=== PATIENT | female | born 1985 | race Caucasian/White ===

== ENCOUNTER 2021-02-14 23:47 | Emergency (ER) | payer BC, OTHER ==
[~2021-02-14] VITALS: Ht 157 cm; Wt 77.2 kg
[2021-02-14 23:54] VITALS: BP 134/87
--- OUTSIDE RECORDS SUMMARY | 2021-02-14 23:55 | XMS REPORT ---
Author Author [facility] Address Unknown Phone Unavailable Care Team Providers Care Skip Miner Name Role Phone TESS FLOWERS Unavailable PROBLEMS Type Condition ICD9-CM Code [id number] Code Onset Dates Condition S tatus W/U Status Risk SNOMED Code Notes Problem Loss of taste R43.2 Active confirmed 618730 [id number] ALLERGIES Allergen (clinical drug ingredient) Drug/Non Drug Allergy do cumented on EMR Reaction Allergy Type Onset Date Status Rocephin anaphylaxis with or without facial swelling Anoop g Allergy Active ENCOUNTERS from 1985 to 2021-02-02 Encounter Location Date Provider Diagnosis [address] [phone] Aug, TESS FLOWERS IMMUNIZATIONS No Information SOCIAL HISTORY Sex Assigned At : Social History Observation Description Sex Assigned At Female PHQ2 Question Answer Notes In the last 2 weeks, how often have you had little interest or pleasure in doing things? Not at all In the last 2 weeks, how often have you been feeling down, depressed, or hopeless? Not at all Total PHQ2 Score 0 REASON FOR REFERRAL No Information VITAL SIGNS Height 62 in Aug, Weight 233 lbs Aug, Temperature 98.1 degrees Fahrenheit Aug, Heart Rate 64 bpm Aug, Respiratory Rate 16 bpm Aug, Blood pressure systolic 110 mmHg Aug, Blood pressure diastolic 76 mmHg Aug, MEDICATIONS Medication SIG (Take, Route, Frequency, Duration) Notes Start Da te End Date Status Ciprofloxacin HCl 250 MG 1 tablet Orally Twice a day for 3 day(s ) Nov, Active PROCEDURES No Information RESULTS No Results REASON FOR VISIT No Information MEDICAL (GENERAL) HISTORY Type Description Date Medical History depression Goals Section No Information Health Concerns No Information MEDICAL EQUIPMENT No Information MENTAL STATUS No Information FUNCTIONAL STATUS No Information ASSESSMENTS No Information PLAN OF TREATMENT Medication Medication Name Sig Start Date Stop Date Ciprofloxacin HCl 250 MG 1 tablet Orally Twice a day for 3 day(s ) Nov, Insurance Providers Payer Name Payer Address Payer Phone Insured Name Patient Relati onship to Insured Coverage Start Date Coverage End Date Subscriber Number [facility] ashleigh Mccullough [id number] [place] [address] Camila Rodrigues self 2019 [place] Missing insurance scan copy of card into pt doc Rosey Bustamante self [id number] [place] [address] [facility] [id number] Rosey Bustamante self [id number]
--- OUTSIDE RECORDS SUMMARY | 2021-02-14 23:55 | XMS REPORT ---
Author Author [facility] Address Unknown Phone Unavailable Care Team Providers Care First Assistant Manager Name Role Phone TESS FLOWERS Unavailable PROBLEMS Type Condition ICD9-CM Code [id number] Code Onset Dates Condition S tatus W/U Status Risk SNOMED Code Notes Problem Loss of taste R43.2 Active confirmed [id number] ALLERGIES Allergen (clinical drug ingredient) Drug/Non Drug Allergy do cumented on EMR Reaction Allergy Type Onset Date Status Rocephin anaphylaxis with or without facial swelling Anoop g Allergy Active ENCOUNTERS from 1985 to 2021-02-01 Encounter Location Date Provider Diagnosis [facility] [address] [facility] [id number] [place] [address] June, TESS FLOWERS IMMUNIZATIONS No Information SOCIAL HISTORY [...] REASON FOR REFERRAL No Information VITAL SIGNS No information MEDICATIONS Medication SIG (Take, Route, Frequency, Duration) [...] Start Date Coverage End Date Subscriber Number Group [facility] Missing insurance scan copy of card into pt doc Rosey Bustamante self [id number] [place] [address] [facility] [id number] Rosey Bustamante self [id number] [facility] [place] [id number] Camila Rodrigues 2019
--- NOTE | 2021-02-15 00:10 | ED Lower Extremity ---
General Chief Complaint: Lower Extremity Stated Complaint: LEFT KNEE INJURY Source: patient History of Present Illness Date Seen by Provider: Feb 14, 2021 Time Seen by Provider: 23:51 Initial Comments 35 yo female presents with complaint of feeling like her left knee is popped out of place. She has had problems with the left knee since 5-6 years ago when she injured it doing an insanity workout. She periodically has it feel like it pops out of place but she can usually flex and extend her knee and get it to relax and "go back in place". She was getting in her car tonight and was in a hurry to avoid being late to work. She thinks she twisted her knee getting in the car. She felt like her knee popped out of place. When she got to work she kept trying to work her knee and move her leg to try and get it to go back in place. She was having pain in the sides and behind her knee. She did take some aleve for the pain which helped some. She drove herself here to be seen. Work had her leave ea rly because of the pain and not being able to walk and get around well enough to do her job. She states she never had the knee evaluated before because she never had insurance. 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 Onset: this evening Severity: moderate Pain/Injury Location: left knee Method of Injury: twisted (As she was getting in her car) Modifying Factors: Improves With Movement (Usually flexing and extending her knee repeatedly gets her knee to "pop back in place" and that helps it), Improves With Pain Medication Allergies and Home Medications Allergies Coded Allergies: No Known Drug Allergies (Unverified , 02/15/21) Patient Home Medication List Home Medication List Reviewed: Yes Cyclobenzaprine HCl (Cyclobenzaprine HCl) 10 Mg Tablet, 10 MG PO Q8H PRN for SPASMS Prescribed by: STUART HUDSON on 02/15/21 0047 Review of Systems Constitutional: No chills, No fever EENTM: no symptoms reported Respiratory: no symptoms reported Cardiovascular: no symptoms reported Gastrointestinal: no symptoms reported Genitourinary: no symptoms reported Musculoskeletal: see HPI, joint pain (Left knee) Skin: No change in color Psychiatric/Neurological: Denies Numbness, Denies Paresthesia Past Jldnfwy-Cutxgl-Dpkaak Hx Patient Social History Tobacco Use?: Yes Tobacco type used: Cigarettes Use of E-Cig and/or Vaping dev: No Substance use?: No Alcohol Use?: No Past Medical History Surgeries: Yes Section Respiratory: No Cardiac: No Neurological: No Genitourinary: No Gastrointestinal: No Musculoskeletal: No Endocrine: No HEENT: No Psychosocial: No Physical Exam Vital Signs Vital Signs - First Documented 02/14/21 23:54 Temp 36.1 Pulse 92 Resp 12 B/P (MAP) 134/87 (103) Pulse Ox 100 O2 Delivery Room Air Capillary Refill : Height, Weight, BMI Height: '" Weight: lbs. oz. kg; BMI Method: General Appearance: WD/WN, no apparent distress Cardiovascular: normal peripheral pulses Knees: bilateral knee normal range of motion, bilateral knee no evidence of injury; left knee pain (Pain to palpation behind her knee), left knee soft tissue tenderness (Lateral and medial collateral ligaments are tender to palpation.) Neurologic/Tendon: normal sensation, normal motor functions, normal tendon functions Neurologic/Psychiatric: alert, oriented x 3, abnormal gait (Antalgic gait) Skin: normal color, warm/dry Progress/Results/Core Measures Results/Orders My Orders Orders - STUART HUDSON MD Knee 4 View Or > Left (02/15/21 00:02) Rx-Cyclobenzaprine Tablet (Rx-Flexeril T (02/15/21 00:45) Mehdi Bandage (02/15/21 00:40) Vital Signs/I&O 02/14/21 23:54 Temp 36.1 Pulse 92 Resp 12 B/P (MAP) 134/87 (103) Pulse Ox 100 O2 Delivery Room Air Progress Progress Note #1: Progress Note X-ray of the left knee to evaluate the bony structure and joint. Advised the patient that with this going on for 5 to 6 years and feeling like her knee goes out of place, she likely would need an MRI imaging more advanced than what I have available. For this she would need to follow-up through the clinic or orthopedics. Determined the findings of today's x-ray and plan disposition from there Progress Note #2: Progress Note On my review of the 4 view films of the left knee there is no acute fracture or dislocation. There is no joint effusion. Counseled patient on results and advised to use an Mehdi bandage for compression and support. Use muscle relaxer for the tense muscles. Continue with NSAIDs and ice alternating with heat if needed. Rest and follow-up with clinic. Diagnostic Imaging Diagonstic Imaging: Xray Plain Films/CT/US/NM/MRI: knee Comments On my review of the 4 view films of the left knee there is no acute fracture or dislocation. There is no joint effusion. Reviewed: Reviewed by Me Departure Impression Primary Impression: Sprain of unspecified site of left knee, initial encounter Disposition: HOME, SELF-CARE Condition: Stable Departure-Patient Inst. Decision time for Depature: 00:41 Referrals: JERED PANDYA,LOCAL PHYSICIAN (PCP) Primary Care Physician BRANT BONILLA MD [facility] Patient Instructions: Knee Sprain ED Add. Discharge Instructions: Use the mehdi bandage for compression and support. The muscle relaxer can help your tense muscles relax so your knee can relax and go back in place for you. Use Ibuprofen (Motrin or Advil) or Naproxen (Aleve) to help with pain and inflammation. You may alternate ice and heat to the knee or use whichever helps more. Follow up with clinic for continued concerns. To establish care with primary care provider at [facility] clinic call [phone] Dr. Bonilla has clinic in [place] and his nurse practitioner, Bradley Pandya, sees patients here in [place]. All discharge instructions reviewed with patient and/or family. Voiced understanding. Scripts Cyclobenzaprine HCl (Cyclobenzaprine HCl) 10 Mg Tablet 10 MG PO Q8H PRN for SPASMS for 5 Days, #15 TAB 0 Refills Prov: STUART HUDSON MD 02/15/21 Work/School Note: Work Release Form Date Seen in the Emergency Department: Feb 14, 2021 Return to Work: Feb 15, 2021 Restrictions: No Restrictions STUART HUDSON MD Feb 15, 2021 00:10
[2021-02-15] MEDS ORDERED: RX-CYCLOBENZAPRINE 10 MG (FLEXERIL) TAB PPK#3 PO PRN (00:45)
[2021-02-15] MEDS ORDERED: CYCL10TA25 PO (00:47)
--- NOTE | 2021-02-15 03:33 | Diagnostic Imaging Report ---
Indication: Left knee injury 4 views of the left knee show no fracture, dislocation or other acute abnormalities. IMPRESSION: Negative left knee Dictated by: Dictated on workstation # [id number]
== END 2021-02-15 00:50 | disposition home or self-care (01) ==
LOC: EDUNIT# 23:47 → ER FS 23:53
DX: S83.92XA Sprain of unspecified site of left knee, initial encounter (principal); F17.210 Nicotine dependence, cigarettes, uncomplicated; X50.1XXA Overexertion from prolonged static or awkward postures, initial encounter
CPT/HCPCS: 73564

== ENCOUNTER 2021-11-29 01:11 | Emergency (ER) | payer BC ==
[~2021-11-29 01:11] MED LIST: CYCL10TA25 PO
--- NOTE | 2021-11-29 01:23 | ED GI ---
General Chief Complaint: OB > 20 WEEKS Stated Complaint: W/ABD PAIN History of Present Illness Date Seen by Provider: Nov 29, 2021 Time Seen by Provider: 01:12 Initial Comments 35-year-old female presents with abdominal pains and cramping. Patient is 32 weeks and 2 days. Patient is due on January 29, 2022. Patient reports that she is having abdominal cramping that comes and goes feel somewhat like contractions. Patient reports that this been going on for about an hour. The pain is not constant. She reports that the pain is in the anterior abdomen and little bit on the right side. Patient sees Dr. Ovalles at [facility] for her OB care. She is not having any vaginal bleeding, fluid leaking, or discharge. She does report that she has some pressure in her lower pelvis. Allergies and Home Medications Allergies Coded Allergies: No Known Drug Allergies (Unverified , 02/15/21) Patient Home Medication List Home Medication List Reviewed: Yes Cyclobenzaprine HCl (Cyclobenzaprine HCl) 10 Mg Tablet, 10 MG PO Q8H PRN for SPASMS Prescribed by: STUART HUDSON on 02/15/21 0047 Review of Systems Review of Systems Constitutional: no symptoms reported EENTM: No Symptoms Reported Respiratory: No Symptoms Reported Cardiovascular: No Symptoms Reported Gastrointestinal: See HPI Genitourinary: See HPI Musculoskeletal: no symptoms reported Skin: no symptoms reported Psychiatric/Neurological: No Symptoms Reported Endocrine: No Symptoms Reported Hematologic/Lymphatic: No Symptoms Reported Past Mrjgoeh-Edwbwv-Xrieez Hx Patient Social History Tobacco Use?: Yes Tobacco type used: Cigarettes Smoking Status: Current Everyday Smoker Use of E-Cig and/or Vaping dev: No Substance use?: No Alcohol Use?: No Pt feels they are or have been: No Past Medical History Surgeries: Yes Section Respiratory: No Cardiac: No Neurological: No Genitourinary: No Gastrointestinal: No Musculoskeletal: No Endocrine: No HEENT: No Psychosocial: No Physical Exam Vital Signs Vital Signs - First Documented 11/29/21 01:11 Temp 36.4 Pulse 97 Resp 18 B/P (MAP) 136/79 (98) Pulse Ox 98 O2 Delivery Room Air Capillary Refill : Height/Weight/BMI Height: '" Weight: lbs. oz. kg; 31.00 BMI Method: General Appearance: WD/WN, no apparent distress Respiratory: lungs clear, normal breath sounds Cardiovascular: normal peripheral pulses, regular rate, rhythm Gastrointestinal: soft, other (Gravid appearing, heart tones 150s) Extremities: normal range of motion, non-tender Pelvic: other (Declined exam) Neurologic/Psychiatric: alert, normal mood/affect, oriented x 3 Skin: normal color, warm/dry Progress/Results/Core Measures Results/Orders Vital Signs/I&O 11/29/21 11/29/21 01:11 01:24 Temp 36.4 Pulse 97 97 Resp 18 18 B/P (MAP) 136/79 (98) 136/79 Pulse Ox 98 98 O2 Delivery Room Air Room Air Progress Progress Note : Progress Note Discussed with patient that if she is concerned about contractions we will need to transfer her for OB monitoring as we do not have the ability. Patient was offered a cervical exam but declined. Patient preferred to be discharged and she will just drive over to [place] and present to the OB floor for further evaluation. Patient understands risks with but feels that she would just rather go over on her own. She does report that she has an appointment at 9 AM this morning with Dr. Ovalles. Patient was discharged and recommended that she goes to the OB floor for monitoring upon discharge. Departure Impression Primary Impression: 32 weeks gestation of Disposition: HOME, SELF-CARE Condition: Unchanged Departure-Patient Inst. Referrals: NO,LOCAL PHYSICIAN (PCP) Primary Care Physician Patient Instructions: Stomach Pain Later in , - The Eighth Month Add. Discharge Instructions: Follow-up with Dr. Ovalles. If you develop contractions or concerns please present to either the OB floor at [place] or [place] All discharge instructions reviewed with patient and/or family. Voiced understanding. ARTIE ORELLANA DO Nov 29, 2021 01:23
[2021-11-29 01:24] VITALS: BP 136/79
== END 2021-11-29 01:24 | disposition home or self-care (01) ==
LOC: EDUNIT# 01:11 → ER FS 01:13
DX: Z34.93 Encounter for supervision of normal pregnancy, unspecified, third trimester (principal); Z3A.32 32 weeks gestation of pregnancy; Z28.310 Unvaccinated for COVID-19
CPT/HCPCS: 99281

== ENCOUNTER 2021-12-25 22:53 | Emergency (ER) | payer BC ==
[2021-12-25] MEDS ORDERED: IBUPROFEN 600 MG (MOTRIN) TAB PO ONE (23:15)
--- NOTE | 2021-12-25 23:24 | ED Cough/URI ---
General Chief Complaint: Cough/Cold/Flu Symptoms Stated Complaint: N/V/D,SORE THROAT,COUGH Nursing Triage Note: Pt presents with the complaint of a cough and sore throat that has been going on for a week. Pt is 37 weeks Source: patient Exam Limitations: no limitations History of Present Illness Date Seen by Provider: Dec 25, 2021 Time Seen by Provider: 22:55 Initial Comments Patient is a 36-year-old, 37-week who presents with sore throat, body aches, for nausea and vomiting diarrhea. Patient is taking NyQuil with limited relief. Denies abdominal pain or cramping or vaginal fluid leakage. No other symptoms or complaints. Timing/Duration: yesterday Severity/Quality: other Prior Episodes/Possible Cause: other Modifying Factors: Improves With Other Associated Symptoms: other Allergies and Home Medications Allergies Coded Allergies: ceftriaxone (Verified Allergy, Unknown, 12/25/21) Patient Home Medication List Home Medication List Reviewed: Yes Cyclobenzaprine HCl (Cyclobenzaprine HCl) 10 Mg Tablet, 10 MG PO Q8H PRN for SPASMS Prescribed by: STUART HUDSON on 02/15/21 0047 Guaifenesin (Mucinex) 1,200 Mg Tab.er.12h, 1,200 MG PO BID Prescribed by: PILO MCMILLAN on 12/25/218 Prednisone (Prednisone) 20 Mg Tab, 40 MG PO DAILY Prescribed by: PILO MCMILLAN on 12/25/218 Review of Systems Review of Systems Constitutional: see HPI EENTM: see HPI Respiratory: see HPI Cardiovascular: see HPI Gastrointestinal: see HPI Genitourinary: see HPI Musculoskeletal: see HPI Skin: see HPI Psychiatric/Neurological: See HPI Hematologic/Lymphatic: See HPI Immunological/Allergic: see HPI All Other Systems Reviewed Negative Unless Noted: No Past Haansyb-Njjtug-Xtivpl Hx Patient Social History Tobacco Use?: No Use of E-Cig and/or Vaping dev: No Substance use?: No Alcohol Use?: No Pt feels they are or have been: No Past Medical History Surgeries: Yes Section Respiratory: No Cardiac: No Neurological: No Genitourinary: No Gastrointestinal: No Musculoskeletal: No Endocrine: No HEENT: No Psychosocial: No Physical Exam Vital Signs - First Documented 12/25/21 22:57 Temp 36.5 Pulse 93 Resp 18 B/P (MAP) 135/75 (95) Pulse Ox 100 O2 Delivery Room Air Capillary Refill : Less Than 3 Seconds Height: '" Weight: lbs. oz. kg; 31.00 BMI Method: General Appearance: WD/WN, no apparent distress Eyes: Bilateral Eye Normal Inspection, Bilateral Eye PERRL, Bilateral Eye EOMI HEENT: PERRL/EOMI Neck: non-tender, full range of motion, supple Respiratory: lungs clear, normal breath sounds Cardiovascular: regular rate, rhythm Gastrointestinal: soft, other (Carotid) Neurologic/Psychiatric: alert, oriented x 3 Skin: normal color, warm/dry Focused Exam Sepsis Stage: Ruled Out Progress/Results/Core Measures Suspected Sepsis SIRS Temperature: Pulse: 93 Respiratory Rate: 18 Blood Pressure 135 /75 Mean: 95 Results/Orders Lab Results Laboratory Tests Test 12/25/21 23:07 Range/Units Influenza Type A (RT-PCR) Not Detected Not Detecte Influenza Type B (RT-PCR) Not Detected Not Detecte SARS-CoV-2 RNA (RT-PCR) Detected H Not Detecte My Orders Orders - PILO MCMILLAN 19 Inhouse Test (12/25/21 23:04) Influenza A And B By Pcr (12/25/21 23:04) Isolation Central Supply Req (12/25/21 23:04) Ibuprofen Tablet (Motrin Tablet) (12/25/21 23:15) Famotidine Tablet (Pepcid Tablet) (12/25/21 23:30) Prednisone Tablet (Deltasone Tablet) (12/25/21 23:30) Medications Given in ED Current Medications Medications Dose Ordered Sig/Lorin Route Start Time Stop Time Status Last Admin Dose Admin Famotidine 40 mg ONCE ONCE PO 12/25/21 23:30 12/25/21 23:31 DC 12/25/21 23:36 40 MG Ibuprofen 600 mg ONCE ONCE PO 12/25/21 23:15 12/25/21 23:16 DC 12/25/21 23:11 600 MG Prednisone 40 mg ONCE ONCE PO 12/25/21 23:30 12/25/21 23:31 DC 12/25/21 23:36 40 MG Vital Signs/I&O 12/25/21 22:57 Temp 36.5 Pulse 93 Resp 18 B/P (MAP) 135/75 (95) Pulse Ox 100 O2 Delivery Room Air Capillary Refill : Less Than 3 Seconds Blood Pressure Mean: 95 Departure Communication (Admissions) Patient with COVID without respiratory compromise. Steroids given. Patient with moderate symptoms with progression since onset and poor tolerance to conventional therapy. Will place on Paxlovid with steroids in OB follow-up. Return precautions reviewed. Patient verbalizes understanding agreement discharge instructions prior to departure Impression Primary Impression: COVID-19 Disposition: 01 HOME, SELF-CARE Condition: Stable Departure-Patient Inst. Decision time for Depature: 23:26 Referrals: FLORENTINO FOSTER DO (PCP/Family) Primary Care Physician Patient Instructions: COVID-19 and Add. Discharge Instructions: You were evaluated in the emergency department for sore throat, body aches and cough. COVID and influenza test were performed and are negative. Your symptoms are consistent with acute viral syndrome. Please go home and rest, increase fluids take Tylenol, Mucinex as needed for body aches and fever. Follow-up with your [facility] later this week for reevaluation. Return to the ED if new or worsening symptoms. All discharge instructions reviewed with patient and/or family. Voiced understanding. Scripts Famotidine (Pepcid) 20 Mg Tablet 20 MG PO BID, #10 TAB Prov: PILO MCMILLAN DO 12/25/21 Nirmatrelvir/Ritonavir (Paxlovid 300-100 mg Pack (Eua)) 300 Mg (150 Mg X 2)-100 Mg Tab.ds.pk 1 EACH PO BID, #10 PKG Prov: PILO MCMILLAN DO 12/25/21 Guaifenesin (Mucinex) 1,200 Mg Tab.er.12h 1200 MG PO BID, #30 TAB Prov: PILO MCMILLAN DO 12/25/21 Prednisone (Prednisone) 20 Mg Tab 40 MG PO DAILY, #4 TAB 0 Refills Prov: PILO MCMILLAN DO 12/25/21 PILO MCMILLAN DO Dec 25, 2021 23:24
[2021-12-25] MEDS ORDERED: GUAI120013 PO (23:28)
[2021-12-25] MEDS ORDERED: PRD20T PO (23:28)
[2021-12-25] MEDS ORDERED: predniSONE 20 MG TAB PO ONE (23:30)
[2021-12-25] MEDS ORDERED: FAMOTIDINE 20 MG (PEPCID) TABLET PO ONE (23:30)
[2021-12-25 23:57] VITALS: BP 135/75
[2021-12-25] MEDS ORDERED: FAMO-119 PO (23:58)
[2021-12-25] MEDS ORDERED: NIRM1TAB PO (23:58)
== END 2021-12-26 00:14 | disposition home or self-care (01) ==
LOC: EDUNIT# 22:53 → ER FS 22:54
DX: O98.513 Other viral diseases complicating pregnancy, third trimester (principal); U07.1 COVID-19; Z3A.37 37 weeks gestation of pregnancy; Z28.310 Unvaccinated for COVID-19
CPT/HCPCS: 87636

== ENCOUNTER 2022-01-27 19:10 | Emergency (ER) | payer BC ==
[~2022-01-27] VITALS: Ht 157.5 cm; Wt 104.3 kg
[~2022-01-27 19:10] MED LIST changes: +FAMO-119 PO; +GUAI120013 PO; +NIRM1TAB PO; +PRD20T PO
--- NOTE | 2022-01-27 19:42 | ED GI ---
General Stated Complaint: CONSTIPATION/FEET AND LEGS SWELLING Source of Information: Patient History of Present Illness Date Seen by Provider: Jan 27, 2022 Time Seen by Provider: 19:19 Initial Comments 36-year-old female presenting with complaints of constipation, left-sided abdominal pain, difficulty urinating. She feels like she has swelling in her arms and legs. She delivered a baby by on Saturday and had a bowel movement before leaving the hospital but has not had a bowel movement since . She has been taking Percocet for pain and stool softener. She had tried taking milk of magnesia and drinking prune juice today but still has not had a bowel movement. She feels pressure like she needs to have a bowel movement but cannot get anything to come out. She is having difficulty urinating because of the pressure. She denies any burning pain with urination Timing/Duration: 4-5 Days Severity/Quality: Severe (Pressure and cramping in her abdomen), Cramping Location: LLQ, Generalized Abdomen Activities at Onset: Other (Onset since on Saturday and taking narcotics for pain) Modifying Factors: Worsens With Analgesics (Narcotic pain medicine slowing her bowels down) Associated Symptoms: No Back Pain, No Chest Pain, No Diaphoresis, No Fe shelby/Chills; Fatigue; No Heartburn, No Nausea/Vomiting, No Rash, No Shortness of Air, No Swelling/Mass in Abdomen, No Syncope, No Weakness Allergies and Home Medications Allergies Coded Allergies: ceftriaxone (Verified Allergy, Unknown, 12/25/21) Patient Home Medication List Home Medication List Reviewed: Yes Cyclobenzaprine HCl (Cyclobenzaprine HCl) 10 Mg Tablet, 10 MG PO Q8H PRN for SPASMS Prescribed by: STUART HUDSON on 02/15/21 0047 Famotidine (Pepcid) 20 Mg Tablet, 20 MG PO BID Prescribed by: PILO MCMILLAN on 12/25/212357 Guaifenesin (Mucinex) 1,200 Mg Tab.er.12h, 1,200 MG PO BID Prescribed by: PILO MCMILLAN on 12/25/212327 Nirmatrelvir/Ritonavir (Paxlovid 300-100 mg Pack (Eua)) 300 Mg (150 Mg X 2)-100 Mg Tab.ds.pk, 1 EACH PO BID Prescribed by: PILO MCMILLAN on 12/25/212357 Prednisone (Prednisone) 20 Mg Tab, 40 MG PO DAILY Prescribed by: PILO MCMILLAN on 12/25/21 6596 Review of Systems Review of Systems Constitutional: see HPI EENTM: No Symptoms Reported Respiratory: No Symptoms Reported Cardiovascular: No Symptoms Reported Gastrointestinal: See HPI Genitourinary: See HPI Musculoskeletal: no symptoms reported Skin: No rash Psychiatric/Neurological: Anxiety; Denies Headache Past Rvmmzyh-Wcqpcr-Vtmbfl Hx Patient Social History Tobacco Use?: No Substance use?: No Alcohol Use?: No Past Medical History Surgery/Hospitalization HX: C section 01/22/2022 Surgeries: Yes Section Respiratory: No Cardiac: No Neurological: No Genitourinary: No Gastrointestinal: No Musculoskeletal: No Endocrine: No HEENT: No Psychosocial: No Physical Exam Vital Signs Vital Signs - First Documented 01/27/22 19:18 Temp 36.7 Pulse 90 Resp 18 B/P (MAP) 142/88 (106) O2 Delivery Room Air Capillary Refill : Height/Weight/BMI Height: '" Weight: lbs. oz. kg; BMI Method: General Appearance: obese HEENT: PERRL/EOMI, pharynx normal Neck: non-tender, full range of motion, supple, normal inspection Respiratory: chest non-tender, lungs clear, normal breath sounds, no respiratory distress, no accessory muscle use Cardiovascular: normal peripheral pulses, regular rate, rhythm Gastrointestinal: soft, no pulsatile mass, abnormal bowel sounds (hypoactive); No guarding, No rebound; tenderness (left sided abdominal tenderness to palpation) Extremities: normal range of motion, non-tender, normal capillary refill, pedal edema (1+ edema to BLE) Back: no CVA tenderness Neurologic/Psychiatric: alert, oriented x 3, other (anxious) Skin: normal color, warm/dry Progress/Results/Core Measures Results/Orders Lab Results Laboratory Tests Test 01/27/22 19:41 Range/Units White Blood Count 12.3 H 4.3-11.0 10^3/uL Red Blood Count 4.07 3.80-5.11 10^6/uL Hemoglobin 11.5 11.5-16.0 g/dL Hematocrit 35 35-52 % Mean Corpuscular Volume 86 80-99 fL Mean Corpuscular Hemoglobin 28 25-34 pg Mean Corpuscular Hemoglobin Concent 33 32-36 g/dL Red Cell Distribution Width 14.0 10.0-14.5 % Platelet Count 372 130-400 10^3/uL Mean Platelet Volume 8.7 L 9.0-12.2 fL Immature Granulocyte % (Auto) 1 % Neutrophils (%) (Auto) 75 42-75 % Lymphocytes (%) (Auto) 14 12-44 % Monocytes (%) (Auto) 9 0-12 % Eosinophils (%) (Auto) 1 0-10 % Basophils (%) (Auto) 0 0-10 % Neutrophils # (Auto) 9.2 H 1.8-7.8 10^3/uL Lymphocytes # (Auto) 1.8 1.0-4.0 10^3/uL Monocytes # (Auto) 1.1 H 0.0-1.0 10^3/uL Eosinophils # (Auto) 0.1 0.0-0.3 10^3/uL Basophils # (Auto) 0.0 0.0-0.1 10^3/uL Immature Granulocyte # (Auto) 0.1 0.0-0.1 10^3/uL Urine Color YELLOW Urine Clarity CLEAR Urine pH 7.0 5-9 Urine Specific [place] 1.010 L 1.016-1.022 Urine Protein NEGATIVE NEGATIVE Urine Glucose (UA) NEGATIVE NEGATIVE Urine Ketones NEGATIVE NEGATIVE Urine Nitrite NEGATIVE NEGATIVE Urine Bilirubin NEGATIVE NEGATIVE Urine Urobilinogen 0.2 < = 1.0 MG/DL Urine Leukocyte Esterase 1+ H NEGATIVE Urine RBC (Auto) NEGATIVE NEGATIVE Urine RBC NONE /HPF Urine WBC 10-25 H /HPF Urine Squamous Epithelial Cells 25-50 H /HPF Urine Crystals NONE /LPF Urine Bacteria MODERATE H /HPF Urine Casts NONE /LPF Urine Mucus NEGATIVE /LPF Urine Culture Indicated NO Sodium Level 138 135-145 MMOL/L Potassium Level 4.2 3.6-5.0 MMOL/L Chloride Level 99 98-107 MMOL/L Carbon Dioxide Level 26 21-32 MMOL/L Anion Gap 13 5-14 MMOL/L Blood Urea Nitrogen 14 7-18 MG/DL Creatinine 0.88 0.60-1.30 MG/DL Estimat Glomerular Filtration Rate 87 BUN/Creatinine Ratio 16 Glucose Level 102 70-105 MG/DL Calcium Level 9.8 8.5-10.1 MG/DL Corrected Calcium 10.2 H 8.5-10.1 MG/DL Total Bilirubin 0.3 0.1-1.0 MG/DL Aspartate Amino Transf (AST/SGOT) 17 5-34 U/L Alanine Aminotransferase (ALT/SGPT) 11 0-55 U/L Alkaline Phosphatase 142 H 40-136 U/L Pro-B-Type Natriuretic Peptide 263.5 H <125.0 PG/ML Total Protein 8.0 6.4-8.2 GM/DL Albumin 3.5 3.2-4.5 GM/DL My Orders Orders - STUART HUDSON MD Comprehensive Metabolic Panel (01/27/22 19:29) Ua Culture If Indicated (01/27/22 19:29) Ed Iv/Invasive Line Start (01/27/22 19:29) Acute Abd Series (01/27/22:) Cbc With Automated Diff (01/27/22:) Probnp Fs (01/27/22 19:44) Vital Signs/I&O 01/27/22 19:18 Temp 36.7 Pulse 90 Resp 18 B/P (MAP) 142/88 (106) O2 Delivery Room Air Progress Progress Note #1: Progress Note check basic labs to look at blood count, electrolytes, liver and renal function. UA to check for infection, protein in urine. Acute abdomen xray series to look at how much stool is present and if she might have fecal impaction. Progress Note #2: Progress Note Labs appear stable and not seeing liver failure or heart failure findings. Her proBNP was slightly elevated to go with recent fluid overload with but not high enough to indicate heart failure and no effusion on CXR portion of Acute abdomen xray series. WBC is slightly elevated to 12.3 but this is likely stress reaction and related to recent delivery. Renal function is normal as well. Urine had some bacteria present but there were a lot of skin cells as well. No definite infection. Xrays show increased gas throughout colon and stool in rectum and left side of colon. I reviewed findings with patient and significant other. Discussed doing a rectal exam to try and help remove stool and break up stool that is low in her rectum and she declined. She states she was feeling a little better and felt stomach rumbling. Counseled on using Miralax and possible enema to help get her bowels moving. Continue to try and elevate legs when possible to help with swelling. Diagnostic Imaging Diagonstic Imaging: Xray Plain Films/CT/US/NM/MRI: abdomen Comments [facility], [facility]. [place], [place] NAME: NATHANIEL REID [facility] REC#: [id number] PT STATUS: REG ER : 1985 PHYSICIAN: STUART HUDSON MD ADMIT DATE: 01/27/22/ER FS Signed Date of Exam:01/27/22 ACUTE ABD SERIES INDICATION: Constipation and abdominal pain. FINDINGS: The heart size is normal. The lung bases are clear. The bowel gas pattern is nonspecific. There is no free air. There are surgical clips in the right upper quadrant. IMPRESSION: 1. No acute cardiopulmonary abnormality. 2. Nonspecific bowel gas pattern. Dictated by: Dictated on workstation # [id number] Dict: 01/27/222012 Trans: 01/27/222018 [facility] [id number] Interpreted by: FLORENTINO GENAO MD Electronically signed by: FLORENTINO GENAO MD 01/27/222018 Reviewed: Reviewed by Me Departure Impression Primary Impression: Constipation due to opioid therapy Additional Impression: Leg swelling Disposition: HOME, SELF-CARE Condition: Stable Departure-Patient Inst. Decision time for Depature: 20:34 Referrals: FLORENTINO FOSTER DO (PCP/Family) Primary Care Physician Patient Instructions: Constipation, Adult ED, Dealing with Constipation from the Drugs You Take, How to Use an Enema Add. Discharge Instructions: Use Miralax 17 grams or 1 capful mixed in 6-8 ounces of liquid. Take it at least 2 to 3 times a day until you are having bowel movements. Then you could decrease it to once a day or every other day to help keep stools soft and regular. Drink plenty of water and stay well hydrated. You could also try using a Fleet's enema at home to see if that helps you pass stool and get your bowels moving again. STUART HUDSON MD Jan 27, 2022 19:42
[2022-01-27 19:51] LABS: BASOPHILS % (AUTO) 0 % (0-10); EOSINOPHILS # (AUTO) 0.1 10^3/uL (0.0-0.3); EOSINOPHILS % (AUTO) 1 % (0-10); HEMATOCRIT 35 % (35-52); HEMOGLOBIN 11.5 g/dL (11.5-16.0); LYMPHOCYTES # (AUTO) 1.8 10^3/uL (1.0-4.0); LYMPHOCYTES % (AUTO) 14 % (12-44); MEAN CORPUSCULAR HEMOGLOBIN 28 pg (25-34); MEAN CORPUSCULAR HGB CONC 33 g/dL (32-36); MEAN CORPUSCULAR VOLUME 86 fL (80-99); MEAN PLATELET VOLUME 8.7 fL (9.0-12.2); MONOCYTES # (AUTO) 1.1 10^3/uL (0.0-1.0); MONOCYTES % (AUTO) 9 % (0-12); NEUTROPHILS # (AUTO) 9.2 10^3/uL (1.8-7.8); NEUTROPHILS % (AUTO) 75 % (42-75); PLATELET COUNT 372 10^3/uL (130-400); WHITE BLOOD COUNT 12.3 10^3/uL (4.3-11.0)
[2022-01-27 19:52] LABS: BILIRUBIN,URINE NEGATIVE (NEGATIVE); CLARITY,URINE CLEAR; COLOR,URINE YELLOW; GLUCOSE, URINE (UA) NEGATIVE (NEGATIVE); KETONES,URINE NEGATIVE (NEGATIVE); LEUKOCYTE ESTERASE ,URINE 1+ (NEGATIVE); NITRITE,URINE NEGATIVE (NEGATIVE); PROTEIN,URINE NEGATIVE (NEGATIVE)
[2022-01-27 19:55] LABS: BACTERIA,URINE MODERATE /HPF; SQUAMOUS EPITHELIAL CELL,UR 25-50 /HPF
[2022-01-27 20:13] LABS: POTASSIUM 4.2 MMOL/L (3.6-5.0)
[2022-01-27 20:14] LABS: ALBUMIN 3.5 GM/DL (3.2-4.5); BILIRUBIN,TOTAL 0.3 MG/DL (0.1-1.0); CALCIUM 9.8 MG/DL (8.5-10.1); CREATININE SERUM 0.88 MG/DL (0.60-1.30)
--- NOTE | 2022-01-27 20:17 | Diagnostic Imaging Report ---
INDICATION: Constipation and abdominal pain. FINDINGS: The heart size is normal. The lung bases are clear. The bowel gas pattern is nonspecific. There is no free air. There are surgical clips in the right upper quadrant. IMPRESSION: 1. No acute cardiopulmonary abnormality. 2. Nonspecific bowel gas pattern. Dictated by: Dictated on workstation # [id number]
[2022-01-27 20:42] VITALS: BP 141/97
== END 2022-01-27 20:42 | disposition home or self-care (01) ==
LOC: EDUNIT# 19:10 → ER FS 19:13
DX: K59.03 Drug induced constipation (principal); T40.2X5A Adverse effect of other opioids, initial encounter; M79.89 Other specified soft tissue disorders; D72.829 Elevated white blood cell count, unspecified; Z28.310 Unvaccinated for COVID-19
CPT/HCPCS: 36415; 74022; 80053; 81000; 83880; 85025; 99283

== ENCOUNTER 2022-03-12 03:00 | Emergency (ER) | payer BC ==
[~2022-03-12] VITALS: Ht 157.4 cm; Wt 98.1 kg
--- NOTE | 2022-03-12 03:27 | ED General ---
General Chief Complaint: Cough/Cold/Flu Symptoms Stated Complaint: HEADACHE/COUGH History of Present Illness Date Seen by Provider: Mar 12, 2022 Time Seen by Provider: 03:26 Initial Comments 36-year-old female presents because she was COVID tested. Patient's mom tested positive for COVID. She reports she has mild cough and a headache that is been going on for less than 1 day. No other systemic complaints. Allergies and Home Medications Allergies Coded Allergies: ceftriaxone (Verified Allergy, Unknown, 12/25/21) Patient Home Medication List Home Medication List Reviewed: Yes Cyclobenzaprine HCl (Cyclobenzaprine HCl) 10 Mg Tablet, 10 MG PO Q8H PRN for SPASMS Prescribed by: STUART HUDSON on 02/15/2146 Famotidine (Pepcid) 20 Mg Tablet, 20 MG PO BID Prescribed by: PILO MCMILLAN on 12/25/212357 Guaifenesin (Mucinex) 1,200 Mg Tab.er.12h, 1,200 MG PO BID Prescribed by: PILO MCMILLAN on 12/25/212327 Nirmatrelvir/Ritonavir (Paxlovid 300-100 mg Pack (Eua)) 300 Mg (150 Mg X 2)-100 Mg Tab.ds.pk, 1 EACH PO BID Prescribed by: PILO MCMILLAN on 12/25/212357 Prednisone (Prednisone) 20 Mg Tab, 40 MG PO DAILY Prescribed by: PILO MCMILLAN on 12/25/212327 Review of Systems Review of Systems Constitutional: No chills, No fever EENTM: no symptoms reported Respiratory: cough Cardiovascular: no symptoms reported Gastrointestinal: no symptoms reported Musculoskeletal: no symptoms reported Skin: no symptoms reported Psychiatric/Neurological: Headache Hematologic/Lymphatic: No Symptoms Reported Past Deoatsr-Hljkad-Tuqppi Hx Past Medical History Surgery/Hospitalization HX: C section 01/22/2022 Surgeries: Yes Section Respiratory: No Cardiac: No Neurological: No Genitourinary: No Gastrointestinal: No Musculoskeletal: No Endocrine: No HEENT: No Psychosocial: No Physical Exam Vital Signs Vital Signs - First Documented 03/12/22 03:10 Temp 36.9 Pulse 72 Resp 20 B/P (MAP) 124/65 (84) Pulse Ox 97 O2 Delivery Room Air Capillary Refill : Height, Weight, BMI Height: '" Weight: lbs. oz. kg; 42.00 BMI Method: General Appearance: No Apparent Distress Neck: Non Tender, Supple Respiratory: Lungs Clear, Normal Breath Sounds Cardiovascular: Regular Rate, Rhythm, Normal Peripheral Pulses Extremity: Normal Capillary Refill, Normal Range of Motion Neurologic/Psychiatric: Alert, Oriented x3, No Motor/Sensory Deficits, Normal Mood/Affect, cat swamper II-XII Norm as Tested Skin: Normal Color, Warm/Dry Progress/Results/Core Measures Suspected Sepsis SIRS Temperature: Pulse: Respiratory Rate: Blood Pressure / Mean: Results/Orders Lab Results Laboratory Tests Test 03/12/22 03:25 Range/Units Influenza Type A (RT-PCR) Not Detected Not Detecte Influenza Type B (RT-PCR) Not Detected Not Detecte SARS-CoV-2 RNA (RT-PCR) Not Detected Not Detecte My Orders Orders - ARTIE ORELLANA DO Influenza A And B By Pcr (03/12/22 03:27) Covid 19 Inhouse Test (03/12/22 03:27) Vital Signs/I&O 03/12/22 03:10 Temp 36.9 Pulse 72 Resp 20 B/P (MAP) 124/65 (84) Pulse Ox 97 O2 Delivery Room Air Capillary Refill : Progress Note : Progress Note Patient is negative for COVID and influenza. Discussed with her that since she is only had symptoms recently started it may be too early for a positive test. Patient stable discharged home. She can follow-up with her primary care provider if symptoms worsen and needs further repeated testing Departure Impression Primary Impression: Cough Qualified Codes: R05.9 - Cough, unspecified Disposition: 01 HOME, SELF-CARE Condition: Stable Departure-Patient Inst. Referrals: NO,LOCAL PHYSICIAN (PCP/Family) Primary Care Physician Patient Instructions: Cough, Adult (DC) Add. Discharge Instructions: Follow-up with your primary care provider as needed All discharge instructions reviewed with patient and/or family. Voiced understanding. ARTIE ORELLANA DO Mar 12, 2022 03:26
[2022-03-12 04:31] VITALS: BP 124/65
== END 2022-03-12 04:35 | disposition home or self-care (01) ==
LOC: EDUNIT# 03:00 → ER FS 03:03
DX: R05.9 Cough, unspecified (principal); Z20.822 Contact with and (suspected) exposure to COVID-19; Z28.310 Unvaccinated for COVID-19
CPT/HCPCS: 87636